=== PATIENT | male | born 1990 ===

== ENCOUNTER → 2022-07-16 11:41 | Outpatient (CLI) | payer BC, SELFPAY ==
--- NOTE | ~2022-07-16 | XR_ITS ---
XR fl inj shoulder LT - MR/CT DATE: 07/16/2022 12:35 INDICATION: Chronic left shoulder pain TECHNIQUE: The purpose of the procedure, technique and potential competitions were discussed with the patient. The patient gave consent. Timeout procedure was performed. The skin over the anterior aspect of the right shoulder was prepared with sterile Betadine solution. 1% lidocaine local anesthetic was administered to the skin and underlying subcutaneous tissues. Using fluoroscopic guidance, a 22-gauge spinal needle was introduced into the glenohumeral joint area . 12 CC of mixed Omnipaque 350 and multi-Nino contrast material and lidocaine was injected and the n eedle was withdrawn. IMPRESSION: Pre-MRI left shoulder contrast material injection Reviewed, dictated and finalized at [facility]. Reviewed, dictated and finalized at [facility].
--- NOTE | ~2022-07-16 | MR_ITS ---
MR arthrogram of the left shoulder CLINICAL HISTORY: Chronic left shoulder pain TECHNIQUE: After injection of dilute gadolinium, axial T1-weighted fat-sat and T2 fat-sat images, cor onal T1 fat-sat and T2 fat-sat images, and sagittal T1-weighted and T2 fat-sat images were performed. T1 fat-sat imaging was also performed in the abduction external rotation position. FINDINGS: Majority of injected contrast is extra-articular in location. There is minimal AC joint deg enerative change. Minimal subacromial spur present. Coracoclavicular, coracoacromial, and coracohumer al ligaments are intact. Supraspinatus and infraspinatus tendons are intact, without evidence of partial or full-thickness tea r. Subscapularis tendon is intact. Tendon of long head of the biceps is intact. No definite labral tear identified. Inferior glenohumeral ligament is intact. No degenerative change of the glenohumeral joint. No contra st extravasation noted into the subacromial/subdeltoid bursa. No muscle atrophy or edema evident. IMPRESSION: Suboptimal MR arthrogram as the majority of the injected contrast is extra-articular in location. No rotator cuff or labral tear seen. Minimal AC joint degenerative change. Reviewed, dictated and finalized at [facility]. IMPRESSION: Suboptimal MR arthrogram as the majority of the injected contrast is extra-fernando cular in location. No rotator cuff or labral tear seen. Minimal AC joint degenerative change.
== END ==
PROVIDERS: PCP Orthopaedic Surgery; Visit Provider Orthopaedic Surgery
DX: M25.512 Pain in left shoulder (principal); G89.29 Other chronic pain
CPT/HCPCS: 23350; 73222; A9577; Q9967